=== PATIENT | male | born 1985 | race American Indian/Alaskan Native ===

== ENCOUNTER 2023-06-11 20:19 | Emergency (ER) | payer SELFPAY ==
[2023-06-11] MEDS ORDERED: LIDOCAINE 1% MPF 30 ML VIAL ONE (21:55)
[2023-06-11] MEDS ORDERED: TDAP (DIPHTH,PERTUSS(ACELL),TET VAC) 0.5 ML VIAL IMVAC ONE (21:55)
--- NOTE | 2023-06-11 23:36 | ER ---
Nurse's Notes [facility] Name: Steven Sweeney Age: 38 yrs Sex: Male : 1985 Arrival Date: 06/11/2023 Time: 20:19 Bed 11 Private MD: Diagnosis: Laceration without foreign body of other part of head-chin Presentation: 06/11 21:09 Chief complaint: Patient states: In the bathtub and fell and hit my chin on the tub. vc1 Coronavirus screen: Client denies travel out of the [place] in the last 14 days. At this time, the client does not indicate any symptoms associated with coronavirus-19. Ebola Screen: Patient negative for fever greater than or equal to 101.5 degrees Fahrenheit, and additional compatible Ebola Virus Disease symptoms Patient denies exposure to infectious person. Patient denies travel to an Ebola-affected area in the 21 days before illness onset. No symptoms or risks identified at this time. Initial Sepsis Screen: Does the patient meet any 2 criteria? No. Patient's initial sepsis screen is negative. Does the patient have a suspected source of infection? No. Patient's initial sepsis screen is negative. Risk Assessment: Do you want to hurt yourself or someone else? Patient reports no desire to harm self or others. Onset of symptoms was June 11, 2023. 21:09 Method Of Arrival: Ambulatory vc1 21:09 Acuity: HARMEET 4 vc1 Triage Assessment: 21:11 General: Appears in no apparent distress. Behavior is calm, cooperative, appropriate vc1 for age. Pain: Complains of pain in submental area Pain does not radiate. Pain currently is 3 out of 10 on a pain scale. Derm: Wound noted submental area. Historical: - Allergies: 21:10 No Known Allergies; vc1 - Home Meds: 21:10 Metoprolol Tartrate Oral [Active]; vc1 - PMHx: 21:10 Hypertensive disorder; vc1 - PSHx: 21:10 None; vc1 - Immunization history:: Client reports receiving the 2nd dose of the Covid vaccine, plus booster. - Social history:: Smoking status: Patient reports the use of cigarette tobacco products, 5-6 cigs/day. Screenin:48 Abuse screen: Denies threats or abuse. Tuberculosis screening: No symptoms or risk kl factors identified. Primary Survey: 23:47 NO uncontrolled hemorrhage observed. A: The client is awake and alert. The airway is kl patent. Breathing/Chest: Spontaneous respiratory effort, equal unlabored respirations, breath sounds clear bilaterally, regular pattern, symmetrical chest rise and fall. Circulation: No external hemorrhage present. Regular and strong central pulse, skin warm/dry/normal color. Disability Pupils are equal, round, reactive to light and accommodation. Exposure/Environment: A warming method has been applied: A warm blanket has been provided to the patient. Reassessment Alertness and Airway: Awake and alert. The airway is patent. Breathing: Spontaneous respiratory effort, equal unlabored respirations, breath sounds clear bilaterally, regular pattern with symmetrical chest rise and fall. Circulation: No external hemorrhage noted. Regular and strong central pulse, skin warm/dry/normal color. Disability: Pupils Pupils are equal, round, reactive to light and accomodation. Secondary Survey: 23:48 HEENT: No deficits noted. Gastrointestinal: No deficits noted. : No deficits noted. kl Musculoskeletal: No deficits noted. Injury Description: Laceration sustained to submental area. Assessment: 23:46 General: Appears in no apparent distress. Smells of alcohol. Neuro: No deficits noted. kl Level of Consciousness is awake, alert, obeys commands, Oriented to person, place, time, situation, Gait is steady, Speech is normal, Facial symmetry appears normal, Pupils are PERRLA. Derm: Wound noted Other: cleaned neosporin applied secured with tegaderm. Vital Signs: 21:09 BP 155 / 104; Pulse 119; Resp 18; Temp 98.1; Pulse Ox 100% ; Weight 114.76 kg; Height 5 vc1 ft. 9 in. ; Pain 3/10; 23:50 Pulse 72; Resp 16; Pulse Ox 99% ; kl 21:09 Body Mass Index 37.36 (114.76 kg, 175.26 cm) vc1 21:09 Pain Scale: Adult vc1 [place] Coma Score: 23:50 Eye Response: spontaneous(4). Motor Response: obeys commands(6). Verbal Response: kl oriented(5). Total: 15. 06/12 23:14 Eye Response: spontaneous(4). Motor Response: obeys commands(6). Verbal Response: cp oriented(5). Total: 15. Trauma Score (Adult): 06/11 23:50 Eye Response: spontaneous(1); Verbal Response: oriented(1); Motor Response: obeys kl commands(2); Systolic BP: > 89 mm Hg(4); Respiratory Rate: 10 to 29 per min(4); Jesus Score: 15; Trauma Score: 12 ED Course: 20:20 Patient arrived in ED. mr 20:49 Lambert Greco PA is PHCP. cp 21:09 Lambert Greco PA is PHCP. cp 21:09 Lambert Kaur MD is Attending Physician. cp 21:10 Triage completed. vc1 21:11 Arm band placed on right wrist. vc1 23:50 Assist provider with laceration repair on submental area that was between 7.6 to 12.5 kl cm using sutures. Set up tray. Performed by Lambert BEE Dressed with 4X4s, Neosporin, Patient tolerated well. Administered Medications: 21:50 Drug: Tetanus-Diphtheria Toxoid IM Adult 0.5 ml {Cook [employer]rup Maker: [employer] Exp: 09/03/2023. Lot #: [id number]. } Route: IM; Site: right deltoid; 23:50 Follow up: Response: No adverse reaction 23:39 Drug: Lidocaine Infiltration (1 %) 10 ml {Note: by lambert greco.} Volume: 20 ml; Route: kl Infiltration; Outcome: 23:36 Discharge ordered by . 23:51 Patient left the ED. Signatures: Veena Hurley RN RN kl Rivera, Mary mr Lambert Greco PA PA cp Calcote, Vanessa, RN RN vc1
--- NOTE | 2023-06-11 23:36 | EDPHYS ---
Physician Documentation [facility] Name: Steven Sweeney Age: 38 yrs Sex: Male : 1985 Arrival Date: 06/11/2023 Time: 20:19 Bed 11 Private MD: RAGHAVENDRA Physician Lambert Kaur HPI: 06/11 21:30 This 38 yrs old Male presents to ER via Ambulatory with complaints of cp Fall Injury, Laceration To Chin. 06/12 23:14 The patient or guardian reports a laceration, clean, tenderness. The complaints affect cp the chin. Context of injury: resulted from slip and fall in bathroom at local hotel. Onset: The symptoms/episode began/occurred today. Associated signs and symptoms: Loss of consciousness: This patient did not experience any loss of consciousness. Pertinent negatives: headache, nausea, neck pain, seizure, vomiting. Historical: - Allergies: 06/11 21:10 No Known Allergies; vc1 - Home Meds: 21:10 Metoprolol Tartrate Oral [Active]; vc1 - PMHx: 21:10 Hypertensive disorder; vc1 - PSHx: 21:10 None; vc1 - Immunization history:: Client reports receiving the 2nd dose of the Covid vaccine, plus booster. - Social history:: Smoking status: Patient reports the use of cigarette tobacco products, 5-6 cigs/day. ROS: 21:35 Constitutional: Negative for body aches, chills, fever, poor PO intake. cp 21:35 Eyes: Negative for injury, pain, redness, and discharge. cp 21:35 Neck: Negative for pain with movement, pain at rest, stiffness, tenderness, bony tenderness. 21:35 Cardiovascular: Negative for chest pain. 21:35 Respiratory: Negative for cough, shortness of breath, wheezing. 21:35 Abdomen/GI: Negative for abdominal pain, vomiting, diarrhea, constipation. 21:35 Back: Negative for pain at rest, pain with movement. 21:35 Skin: Positive for laceration(s), of the chin. 21:35 Neuro: Negative for altered mental status, dizziness, headache, loss of consciousness, syncope, weakness. 21:35 All other systems are negative. Exam: 21:40 Constitutional: The patient appears in no acute distress, alert, awake, cp non-diaphoretic, non-toxic, well developed, well nourished. 21:40 Head/face: Noted is a laceration(s), that is deep, that is linear, of the chin, cp tenderness, that is mild, of the chin, right jaw and left jaw, no deformity noted, patient able to open and close mouth with minimal pain. 21:40 Eyes: Periorbital structures: appear normal, Conjunctiva: exudate, bilaterally, injected, Sclera: no appreciated abnormality, Lids and lashes: appear normal, bilaterally. 21:40 ENT: External ear(s): are unremarkable, Ear canal(s): are normal, clear, TM's: cp dullness, bilaterally, Nose: is normal, Mouth: Lips: moist, Oral mucosa: pink and intact, moist, Posterior pharynx: is normal, airway is patent, no erythema, no exudate. 21:40 Neck: C-spine: vertebral tenderness, is not appreciated, crepitus, is not appreciated, ROM/movement: is normal, is supple, without pain, no range of motions limitations. 21:40 Chest/axilla: Inspection: normal, Palpation: is normal, no crepitus, no tenderness. 21:40 Cardiovascular: Rate: tachycardic, Rhythm: regular. 21:40 Respiratory: the patient does not display signs of respiratory distress, Respirations: normal, no use of accessory muscles, no retractions, labored breathing, is not present. 21:40 Abdomen/GI: Exam negative for discomfort, distension, guarding, Inspection: abdomen appears normal. 21:40 Back: pain, is absent, ROM is normal. 21:40 Musculoskeletal/extremity: Extremities: all appear grossly normal, with no appreciated pain with palpation. 21:40 Neuro: Orientation: to person, place \T\ time. Mentation: is normal, Motor: moves all fours, strength is normal, Sensation: is normal, Gait: is steady, at a normal pace, without difficulty. Vital Signs: 21:09 BP 155 / 104; Pulse 119; Resp 18; Temp 98.1; Pulse Ox 100% ; Weight 114.76 kg; Height 5 vc1 ft. 9 in. ; Pain 3/10; 23:50 Pulse 72; Resp 16; Pulse Ox 99% ; kl 21:09 Body Mass Index 37.36 (114.76 kg, 175.26 cm) vc1 21:09 Pain Scale: Adult vc1 [place] Coma Score: 23:50 Eye Response: spontaneous(4). Motor Response: obeys commands(6). Verbal Response: kl oriented(5). Total: 15. 06/12 23:14 Eye Response: spontaneous(4). Motor Response: obeys commands(6). Verbal Response: cp oriented(5). Total: 15. Trauma Score (Adult): 06/11 23:50 Eye Response: spontaneous(1); Verbal Response: oriented(1); Motor Response: obeys kl commands(2); Systolic BP: > 89 mm Hg(4); Respiratory Rate: 10 to 29 per min(4); Jesus Score: 15; Trauma Score: 12 Laceration: 23:40 Wound Repair of 3cm ( 1.2in ) subcutaneous laceration to chin. Linear shaped.. Distal cp neuro/vascular/tendon intact. Anesthesia: Wound infiltrated with 5 mls of 1% lidocaine. Wound prep: Simple cleansing by me. Skin closed with 5 5-0 Prolene using simple sutures and sterile technique. Dressed with Bacitracin. Patient tolerated well. MDM: 21:09 Patient medically screened. cp 21:16 Refusal of service: The patient/guardian displays adequate decision making capability cp and despite a detailed discussion of alternatives, benefits, risks, and consequences refuses: CT Scan. 23:35 Data reviewed: vital signs, nurses notes. cp 23:35 Differential diagnosis: Contusion of Hematoma on Laceration of Intracranial bleed- cp Concussion cerebral contusion, facial fracture, jaw fracture. Counseling: I had a detailed discussion with the patient and/or guardian regarding the historical points, exam findings, and any diagnostic results supporting the discharge/admit diagnosis, the need for outpatient follow up, a family practitioner, to return to the emergency department if symptoms worsen or persist or if there are any questions or concerns that arise at home. Response to treatment: the patient's symptoms have markedly improved after treatment, and as a result, I will discharge patient. Special discussion: Based on the patient's history, exam and DX evaluation, there is no indication for emergent intervention or inpatient TX. It is understood by the patient/guardian that if the SXs persist or worsen they need to return immediately for re-evaluation. 06/11 21:15 Order name: Dressing - Wound; Complete Time: 21:52 cp 06/11 21:15 Order name: Gloves, Sterile; Complete Time: 21:52 cp 06/11 21:15 Order name: Setup Suture Tray; Complete Time: 21:52 cp 06/11 23:35 Order name: Wound dressing; Complete Time: 23:50 cp Administered Medications: 21:50 Drug: Tetanus-Diphtheria Toxoid IM Adult 0.5 ml {Printing Engineer: [employer] sergio Exp: 09/03/2023. Lot #: [id number]. } Route: IM; Site: right deltoid; 23:50 Follow up: Response: No adverse reaction 23:39 Drug: Lidocaine Infiltration (1 %) 10 ml {Note: by lambert riley.} Volume: 20 ml; Route: kl Infiltration; Disposition Summary: 06/11/23 23:36 Discharge Ordered Location: Home cp Problem: new cp Symptoms: have improved cp Condition: Stable cp Diagnosis - Laceration without foreign body of other part of head - chin cp Followup: cp - With: Private Physician - When: 7 - 10 days - Reason: Staple/Suture removal Discharge Instructions: - Discharge Summary Sheet cp - Head Injury, Adult cp - Facial Laceration cp - Sutured Wound Care cp Forms: - Work release form kl - Medication Reconciliation Form cp - Thank You Letter cp - Antibiotic Education cp - Prescription Opioid Use cp - Patient Portal Instructions cp - Leadership Thank You Letter cp Prescriptions: - Cephalexin 500 mg Oral Capsule - take 1 capsule by ORAL route every 8 hours for 10 days; 30 capsule; Refills: 0, cp Product Selection Permitted Signatures: Veena Hurley RN RN kl Page, Corey, PA PA cp Calcote, Vanessa RN RN vc1 Corrections: (The following items were deleted from the chart) 06/12 23:34 06/11 21:40 Eyes: Periorbital structures: appear normal, Conjunctiva: cp cp
== END 2023-06-11 23:51 | disposition home or self-care (01) ==
LOC: ER 20:19
PROC: 0HQ1XZZ Repair Face Skin, External Approach (ICD-10-PCS; principal; 2023-06-11)
DX: S01.81XA Laceration without foreign body of other part of head, initial encounter (principal); I10 Essential (primary) hypertension; Z23 Encounter for immunization
CPT/HCPCS: 90471; 99284; J2001